=== PATIENT | male | born 1955 | race Caucasian/White ===

== ENCOUNTER 2016-06-17 14:50 | Emergency (ER) | payer OTHER ==
[~2016-06-17] VITALS: Ht 172.7 cm; Wt 91.5 kg
[~2016-06-17 14:50] MED LIST: ASPI-13 PO; ASPI81TA2 PO; ATENOLOL (*) 2525 MG PO; ATOR80TA77 PO; BUPR100T15 PO; CA C1TAB28 PO; HYDR-656 PO; NIT4 SL; OMEP-113 PO; PLAVIX (*) 75 M75 MG PO; PRAV20TA2; TUMS PO
[2016-06-17 15:10] VITALS: BP 132/74; PULSE 71; RESP 15; O2SAT 98
[2016-06-17 19:25] LABS: Mean Corpuscular Hemoglobin 30.1 pg (27.0-35.0); Mean Corpuscular Volume 87.8 fL (81-100)
[2016-06-17 19:53] LABS: TROPONIN T < 0.010 ug/L (0.0-0.011)
--- NOTE | 2016-06-17 20:19 | ED.REPORT ---
HPI-General Illness Date of Service Jun 17, 2016 ED Provider: Shankar Neal DO History of Present Illness: Mr. Elmer Campos is a pleasant 61 year old gentleman with a past medical history significant for CABG x3 in 2004, Stent placement 2012, currently taking plavix, atorvastatin, atenolol presents to the [facility] emergency department with 3 week history of left sided lower and upper jaw pain. The pain is anywhere between 0-3/10, throby and achy, that doesn't radiate. He stated that a "cold pop" today set off the pain to an 8/10 shooting pain. He visited his dentist last 06/11/16. He stated "the dentist got an Xray and it didn't show anything." His staffing branch manager, Dr. Fuller, was not at the office yesterday and they told him to visit the ED. He denies Fever, chills, nausea, vomiting, headache, dizziness, vision change, change in hearing, chest pain, shortness of breath, abdominal pain, constipation , diarrhea, dysuria. Nursing Notes Stated Complaint: LEFT LOWER AND UPPPER JAW PAIN Chief Complaint: General Complaint Nursing Notes Reviewed: Yes Allergies: Coded Allergies: famotidine (Verified Allergy, Intermediate, RASH, 06/17/16) Sulfa (Sulfonamide Antibiotics) (Verified Allergy, Unknown, 06/17/16) Scheduled Amoxicillin (Amoxicillin) 875 Mg Tablet 875 MG PO BID Aspirin-Expunged Drug, Do Not Renew! (Aspirin-Expunged Drug, Do Not Renew!) 81 Mg Tablet 324 MG PO DAILY Aspirin/Calcium Carbonate/Mag (Aspirin Buffered) 325 Mg Tablet 325 MG PO DAILY Atenolol-Expunged Drug, Do Not Renew! (Atenolol-Expunged Drug, Do Not Renew!) 25 Mg Tab 25 MG PO DAILY Atorvastatin Calcium (Atorvastatin Calcium) 80 Mg Tablet 80 MG PO DAILY Bupropion (Bupropion) 100 Mg Tablet 100 MG PO BID Ca Cmb No.1/Vit D3/B-6/FA/B12 (Vitamin D3 1,000 Unit Tablet) 1 Each Tablet 2 EACH PO DAILY Calcium Carbonate-Expunged Drug, Do Not Renew (Tums Chewable-Expunged Drug, Do Not Renew!) 500 Mg Tablet 750 MG PO DAILY Clopidogrel-Expunged Drug, Do Not Renew! (Plavix-Expunged Drug, Do Not Renew!) 75 Mg Tablet 75 MG PO DAILY Nitroglycerin-Expunged Drug, Do Not Renew! (Nitroglycerin SL-Expunged Drug, Do Not Renew!) 0.4 Mg Subl 0.4 MG SL Q5MIN Omeprazole Magnesium (Omeprazole) 20 Mg Capsule.dr 20 MG PO DAILY Pravastatin-Expunged Drug, Do Not Renew! (Pravastatin-Expunged Drug, Do Not Renew!) 20 Mg Tablet 40 MG daily in the evening Scheduled PRN Hydrocodone-Acetaminophen 5-325 mg (Hydrocodone-Acetaminophen 5-325 mg) 1 Each Tablet 1 TABLET PO Q4H PRN PRN For Pain hydrOXYzine Hcl (HydrOXYzine Hcl) 25 Mg Tablet 25-50 MG PO HS PRN PRN For Insomnia General Time Seen by MD: 18:30 Chief Complaint Other Past Medical History Past Medical History CABG x3 in 2004. Cardiac Cath with stent placement 2012. Hypertension. Past Surgical History Reports: CABG Review of Systems A comprehensive review of systems was conducted with the patient and found to be negative except as above in the History of Present Illness. Complete sys rev & neg: except as marked. Physical Exam General: Elderly gentleman sitting in his chair in no acute distress, well-developed, well-nourished, appropriately interactive. HEENT: Normocephalic, atraumatic. External ears without defect. Pupils equal, round, and reactive to light and accommodation. Anicteric sclerae, moist conjunctivae, and no lid lag. Oropharynx free of erythema and cobble stoning with moist mucosa. Pain is reproducible on the 2nd premolar to the 3rd molar on bottom and top of left side. Neck: Supple with full range of motion. No jugular venous distension. No bruits. No lymphadenopathy or thyromegaly. Cardiovascular: Regular rate and rhythm with no murmurs, rubs, or gallops appreciated. Pulmonary: Clear to auscultation bilaterally with no crackles, wheezes, or rhonchi. Normal respiratory effort with no use of accessory muscles. Abdomen: Bowel tones present. Soft, nontender, nondistended. No hepatosplenomegaly or masses appreciated. Extremities: No clubbing, cyanosis, edema, or lymphadenopathy appreciated. Skin: Normal temperature, turgor, and texture; no rash, ulcers, or subcutaneous nodules appreciated. Neurological: Cranial nerves grossly intact. Normal muscle strength, tone, and bulk. Reflexes, coordination, and sensory function within normal limits. No known gait impairment. Psychiatric: Normal mood and affect. Alert and oriented to person, place, and time. Vital Signs Vital Signs Date Time Temp Pulse Resp B/P Pulse Ox O2 Delivery O2 Flow Rate FiO2 06/17/16 15:10 36.3 71 15 132/74 98 Room Air Interpretation & Diagnostics Interpretation & Diagnostics: Pain is reproducible on the 2nd premolar to the 3rd molar on bottom and top of left side. EKG - Normal sinus rhythm, normal axis, no ST elevations/depressions. Lab Results Interpretation Result Diagram: 06/17/16 1908 06/17/16 1908 Test 06/17/16 19:08 White Blood Count 6.7th/mm3 (3.8-10.1) Red Blood Count 4.98mil/mm3 (4.40-5.80) Hemoglobin 15.0g/dL (13.8-17.2) Hematocrit 43.7% (41.0-50.0) Mean Corpuscular Volume 87.8fL (81-100) Mean Corpuscular Hemoglobin 30.1pg (27.0-35.0) Mean Corpuscular Hemoglobin Concent 34.3% (32.0-37.0) Red Cell Distribution Width 12.7% (12.3-15.4) Platelet Count 230bil/L (150-400) Sodium Level 137mEq/L (134-144) Potassium Level 4.2mEq/L (3.5-5.2) Chloride Level 99mEq/L (97-108) Carbon Dioxide Level 24mmol/L (18-29) Blood Urea Nitrogen 13mg/dL (8-27) Creatinine 0.83mg/dL (0.76-1.27) Estimat Glomerular Filtration Rate 99mL/min (>59) Glucose Level 97mg/dL (60-99) Calcium Level 9.2mg/dL (8.5-10.1) Troponin T < 0.010ug/L (0.0-0.011) Re-Eval/Medical Decision Med Decision/Clinical Course 1. Reproducible jaw pain with palpation and cold. - Troponins negative. - EKG normal. - Home with Amoxicillin for 5 days, [place] 5/325 #20, follow up with PCP. Discharge & Departure Shift Change Sign-Out Discussed Complaint(s): Yes Laboratory Evaluation: Lab evaluation discussed Primary Impression: Pain in lower jaw Additional Impression: Pain in upper jaw Disposition: Home Additional Instructions: Your jaw pain is reproducible with palpation and cold. We did an EKG and ethan blood for labs. Your EKG and your lab work was normal, including your troponin level (which measures heart damage) was completely normal. We will send you home with Amoxicillin for 5 days for possible infection. We will send you home with pain medication as well. [place] 5mg/325mg #20 . - While taking this pain medication DO NOT drive, Drink Alcohol, or Take extra Acetaminophen (Tylenol) Follow up with you primary care physician Dr. Jovana Mejia in 1-2 weeks for a follow up visit. Referrals: Jovana Mejia MD (PCP) Attending Statement I personally take a history performed an exam. This gentleman has an exquisitely tender left mandibular premolar. His EKG and troponin are normal. This is at least a 3 day troponin he has been hurting every day for several days. We will place him on antibiotic and pain medication. I have no suspicion at this referred pain. When I percussed his jaw at almost knocked him to his knees. I agree with the resident's note as written above copies to: Jovana Mejia MD, COREY P DO Jun 17, 2016 18:52 Shankar Neal DO Jun 18, 2016 01:36
[2016-06-17] MEDS ORDERED: AMOX875T2 PO (20:20)
[2016-06-17] MEDS ORDERED: HYDR-4003 PO (20:20)
[2016-10-15] MEDS ORDERED: ERGO2000 PO (13:50)
== END 2016-06-17 20:27 | disposition home or self-care (01) ==
LOC: SED 14:50
DX: R68.84 Jaw pain (principal); X58.XXXA Exposure to other specified factors, initial encounter; Y92.9 Unspecified place or not applicable; Y93.89 Activity, other specified; Y99.8 Other external cause status; I10 Essential (primary) hypertension; Z95.1 Presence of aortocoronary bypass graft; Z95.818 Presence of other cardiac implants and grafts; Z79.02 Long term (current) use of antithrombotics/antiplatelets; Z79.82 Long term (current) use of aspirin; Z88.8 Allergy status to other drugs, medicaments and biological substances; Z88.2 Allergy status to sulfonamides

== ENCOUNTER 2016-07-27 17:36 | Emergency (ER) | payer OTHER ==
[~2016-07-27] VITALS: Ht 172.7 cm; Wt 91.8 kg
[~2016-07-27 17:36] MED LIST changes: +AMOX875T2 PO; +HYDR-4003 PO
[2016-07-27 17:55] VITALS: BP 142/76; PULSE 49; RESP 16; O2SAT 97
--- NOTE | 2016-07-27 19:40 | ED.REPORT ---
HPI-Dental/Mouth Prob Date of Service Jul 27, 2016 ED Provider: Mehran De Jesus MD Pt is a 61 y/o male presenting to the ED c/o dental pain onset today. The pt had a lower denture put in 5 days ago and during placement he noticed they cut his gum. His gum has been sensitive, painful, with mild swelling since that day. He denies dysphagia, trouble breathing, fever. He has an appointment for a recheck in 4 days. Nursing Notes Stated Complaint: POSSIBLE GUM INFECTION Chief Complaint: Dental Nursing Notes Reviewed: Yes Allergies: Coded Allergies: famotidine (Verified Allergy, Intermediate, RASH, 07/27/16) Sulfa (Sulfonamide Antibiotics) (Verified Allergy, Unknown, 07/27/16) Scheduled Amoxicillin (Amoxicillin) 875 Mg Tablet 875 MG PO BID Aspirin-Expunged Drug, Do Not Renew! (Aspirin-Expunged Drug, Do Not Renew!) 81 Mg Tablet 324 MG PO DAILY Aspirin/Calcium Carbonate/Mag (Aspirin Buffered) 325 Mg Tablet 325 MG PO DAILY Atenolol-Expunged Drug, Do Not Renew! (Atenolol-Expunged Drug, Do Not Renew!) 25 Mg Tab 25 MG PO DAILY Atorvastatin Calcium (Atorvastatin Calcium) 80 Mg Tablet 80 MG PO DAILY Bupropion (Bupropion) 100 Mg Tablet 100 MG PO BID Ca Cmb No.1/Vit D3/B-6/FA/B12 (Vitamin D3 1,000 Unit Tablet) 1 Each Tablet 2 EACH PO DAILY Calcium Carbonate-Expunged Drug, Do Not Renew (Tums Chewable-Expunged Drug, Do Not Renew!) 500 Mg Tablet 750 MG PO DAILY Clopidogrel-Expunged Drug, Do Not Renew! (Plavix-Expunged Drug, Do Not Renew!) 75 Mg Tablet 75 MG PO DAILY Nitroglycerin-Expunged Drug, Do Not Renew! (Nitroglycerin SL-Expunged Drug, Do Not Renew!) 0.4 Mg Subl 0.4 MG SL Q5MIN Omeprazole Magnesium (Omeprazole) 20 Mg Capsule.dr 20 MG PO DAILY Penicillin V Potassium (Penicillin V Potassium) 500 Mg Tablet 500 MG PO QID Pravastatin-Expunged Drug, Do Not Renew! (Pravastatin-Expunged Drug, Do Not Renew!) 20 Mg Tablet 40 MG daily in the evening Scheduled PRN Hydrocodone-Acetaminophen 5-325 mg (Hydrocodone-Acetaminophen 5-325 mg) 1 Each Tablet 1 TABLET PO Q4H PRN PRN For Pain hydrOXYzine Hcl (HydrOXYzine Hcl) 25 Mg Tablet 25-50 MG PO HS PRN PRN For Insomnia General Time Seen by MD: 19:39 Chief Complaint Mouth pain Hx Obtained From: Patient Arrived By: Walk-in Onset Occurred: 5 - 8 hours ago Symptom Duration: Since onset Quality: Painful Severity: Current: Mild Severity: Maximum: Mild Similar Sx Previous: No Past Medical History Past Medical History CABG x3 in 2004. Cardiac Cath with stent placement 2012. Hypertension. Past Surgical History Reports: CABG Smoking History Unknown if Ever Smoker Ambulatory Status Independent Review of Systems Constitutional: Denies: Fever Ears / Nose / Throat: Reports: Mouth pain, Denies: Throat swelling Respiratory: Denies: Shortness of breath GI: Denies: Dysphagia Complete sys rev & neg: except as marked. Physical Exam Initial Vital Signs Vital Signs (First) Date Time Temp Pulse Resp B/P Pulse Ox O2 Delivery O2 Flow Rate FiO2 07/27/16 17:55 37.0 49 16 142/76 97 Room Air Initial VS: Reviewed, Vital signs normal Head / Eyes: Atraumatic, Normocephalic, PERRL Respiratory: No respiratory distress Cardiovascular: Intact distal pulses Abdomen / GI: No distention Extremities: Vascular intact, Neuro intact Skin: Warm, Dry, No cyanosis Neurologic: Alert, Oriented, Nonfocal Psychiatric: Mood/affect normal, Behavior normal, Normal thought content ENT: Atraumatic, Airway patent, Mucous membranes moist, Pharynx NL, No facial swelling Normal voice. Over the lingual aspect of right lower jaw there appears to be a healing laceration. The area sensitive to touch, with some mild erythema. Neck: Atraumatic, Supple, No meningismus, Full range of motion, No adenopathy Re-Eval/Medical Decision Re-Evaluation/Progress : Time of Eval: 19:56 Re-Evaluation/Progress Note: Pt rechecked. Informed pt of plan for treatment. Pt understands and agrees with plan for treatment. F/U and RTER warnings given. All questions addressed. Counseled Regarding: Diagnosis, Need for follow-up, When/why to return to ED Discharge & Departure Primary Impression: Jaw pain Disposition: Home Discharge Condition All VS Reviewed: Yes Condition: Stable Additional Instructions: Take penicillin as prescribed. Soft diet for 3 days. Re-check at dental school next week Referrals: Jovana Mejia MD (PCP) Selena Attestation Portions of this note were transcribed by Paul Melara. I, Dr. DeJ esus personally performed the history, physical exam and medical decision-making; I reviewed and confirmed the accuracy of the information in the transcribed note. Signed by Selena Ta, 07/27/16 - 1999 copies to: Jovana Mejia MD, Donald L MD Jul 27, 2016 19:40 PAUL MELARA Jul 27, 2016 19:54
[2016-07-27] MEDS ORDERED: PENI500T PO (19:56)
[2016-07-27 20:18] VITALS: BP 131/74; PULSE 48; RESP 18
[2016-10-15] MEDS ORDERED: ERGO2000 PO (13:50)
== END 2016-07-27 20:19 | disposition home or self-care (01) ==
LOC: SED 17:36
DX: R68.84 Jaw pain (principal); I10 Essential (primary) hypertension; Z95.1 Presence of aortocoronary bypass graft; Z79.82 Long term (current) use of aspirin; Z79.899 Other long term (current) drug therapy; Z88.2 Allergy status to sulfonamides; Z88.8 Allergy status to other drugs, medicaments and biological substances

== ENCOUNTER 2016-10-16 12:00 | Day surgery (SDC) | payer OTHER ==
[~2016-10-16 12:00] MED LIST changes: +0.9% Sodium Chloride 1,000 ML IV SCH; -AMOX875T2 PO; -ASPI-13 PO; -ASPI81TA2 PO; -ATENOLOL (*) 2525 MG PO; -ATOR80TA77 PO; -BUPR100T15 PO; -CA C1TAB28 PO; +ERGO2000 PO; -HYDR-4003 PO; -HYDR-656 PO; -NIT4 SL; -OMEP-113 PO; -PRAV20TA2; +Sodium Chloride LOK Flush 10 mL Syringe IV PRN; +fentaNYL-PF 50 mCg/mL 2 mL Inj IVPUSH PRN
== END 2016-10-16 23:59 | disposition home or self-care (01) ==
LOC: END 12:00
PROVIDERS: ATTEND Internal Medicine Gastroenterology
DX: K22.70 Barrett's esophagus without dysplasia (principal); Z53.09 Procedure and treatment not carried out because of other contraindication

== ENCOUNTER 2016-12-01 08:13 | Day surgery (SDC) | payer OTHER ==
[~2016-12-01] VITALS: Ht 172.7 cm; Wt 91.0 kg
[~2016-12-01 08:13] MED LIST changes: +ATEN25TA PO; +ATOR80TA PO; +MELO-259 PO
[2016-12-01 08:42] VITALS: BP 134/82; PULSE 73; RESP 16; O2SAT 97
[2016-12-01] MEDS ORDERED: CLOP75TA28 PO (08:44)
[2016-12-01 09:23] VITALS: BP 145/81; PULSE 69; RESP 12; O2SAT 95
[2016-12-01 09:32] VITALS: BP 142/74; PULSE 72; RESP 14; O2SAT 95
[2016-12-01 09:38] VITALS: BP 141/90; PULSE 68; RESP 14; O2SAT 98
--- NOTE | 2016-12-01 09:47 | ENDO ---
[address] [address] ENDOSCOPY PROCEDURE PATIENT: MARYANN DALTON : 1955 MR#: [id number] ADMIT: 12/01/2016 JOB ID: [id number] DATE: 12/01/2016 PROCEDURE: Esophagogastroduodenoscopy. 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 Patient's ASA classification is two. Mallampati score is two. MEDICATIONS: 1. Versed 5 mg. 2. Fentanyl 100 mcg. INSTRUMENT USED: [id number] PROCEDURE DETAILS: After informed consent was obtained, the patient was brought to the GI suite, where he was placed on oxygen via nasal cannula and monitored with continuous pulse oximeter, telemetry, and blood pressure monitoring. A time-out was performed and then he was placed in a left lateral decubitus position and medications were administered for sedation. A bite block was placed. Medications were then administered for sedation. The standard EGD scope was then inserted through the bite block and advanced under direct visualization to the second portion of the duodenum without difficulty. FINDINGS: 1. Normal-appearing duodenal bulb, first and second portion. 2. Normal-appearing pylorus antrum and gastric body. 3. Retroflexed views in the gastric body revealed a normal-appearing cardia fundus. 4. Multiple biopsies were obtained in the antrum and body of the stomach secondary to patient's complaint of nausea. 5. The top of the gastric folds measured to be approximately at 38 cm. Arising from the top of the gastric folds extending up to 32 cm there was bright salmon-colored mucosa in a circumferential pattern. From 32 cm extending up to 30 cm there was ulcerated mucosa in a linear fashion. Proximal to 30 cm the mucosa otherwise appeared unremarkable. IMPRESSION: 1. Long segment Boyd's. 2. LA Class A ulcerative esophagitis. RECOMMENDATIONS: 1. Recommend starting PPI daily. 2. Reflux precautions. 3. Follow up in GI clinic in one week. COMPLICATIONS: None. ESTIMATED BLOOD LOSS: Less than 5 mL.
--- NOTE | 2016-12-01 18:24 | ENDO ---
[address] [address] ENDOSCOPY PROCEDURE PATIENT: MARYANN DALTON : 1955 MR#: [id number] ADMIT: 12/01/2016 JOB ID: [id number] DATE: 12/01/2016 PROCEDURE: Esophagogastroduodenoscopy. INDICATION: Patient with a history of Boyd esophagus, who is not on any medications to treat Boyd's. The patient's ASA classification is II. Mallampati score is II. MEDICATIONS: Versed 5 mg, fentanyl 100 mcg. INSTRUMENT USED: [id number]. PROCEDURE DETAILS: After informed consent was obtained, the patient was brought into the GI suite, where he was placed on oxygen via nasal cannula and monitored with continuous pulse oximeter, telemetry, and blood pressure monitoring. A time-out was performed. Then, he was placed in the left lateral decubitus position. A bite block was placed. Medications were then administered for sedation. The standard EGD scope was inserted through the bite block and advanced under direct visualization to the second portion of the duodenum without difficulty. FINDINGS: 1. Normal-appearing duodenal bulb, first and second portion. 2. Normal-appearing pylorus, antrum, and gastric body. 3. Retroflexed views in the gastric body revealed a normal-appearing cardia and fundus. 4. Multiple random biopsies were obtained in the antrum and body of stomach secondary to the patient's complaint of nausea. 5. The top of the gastric folds were approximately 39 cm. From 39 cm extending up to 32 cm, the mucosa was bright pink, suggestive of Boyd's, in a circumferential fashion. Multiple biopsies were obtained starting at 38 cm, and then 36 cm, and then 34 cm, and then 32 cm. From 32 cm, extending up to 30 cm, there were two linear areas of ulceration, suggestive of ulcerative esophagitis. IMPRESSION: 1. C6, M0 suspected Boyd's. 2. Lane Class A ulcerative esophagitis. RECOMMENDATIONS: 1. Await biopsy results. 2. Follow up in GI clinic. 3. Reflux precautions. COMPLICATIONS: None. ESTIMATED BLOOD LOSS: Less than 5 mL.
--- NOTE | 2016-12-02 10:43 | PATH ---
SURGICAL PATHOLOGY Attending Physician:Shereen Zimmer CASE STATUS: Signed Out PATIENT NAME: MARYANN DALTON PID: [id number] : 1955 DATE COLLECTED:12/01/2016 16:27 SPECIMEN: 1: Gastric, Biopsy 2: Esophagus, Biopsy 3: Esophagus, Biopsy 4: Esophagus, Biopsy 5: Esophagus, Biopsy CLINICAL HISTORY: HISTORY OF AGUILAR'S 1. GASTRIC BIOPSY 2. DISTAL ESOPHAGUS BIOPSY @38CM 3. DISTAL ESOPHAGUS BIOPSY @36 CM 4. DISTAL ESOPHAGUS BIOPSY @34 CM 5. DISTAL ESOPHAGUS BIOPSY @32 CM FINAL DIAGNOSIS: 1.GASTRIC BIOPSY: FRAGMENT OF GASTRIC FUNDIC-TYPE MUCOSA NEGATIVE FOR SIGNIFICANT INFLAMMATION. Negative for evidence of Helicobacter on H&E stain. Negative for intestinal metaplasia. Negative for dysplasia and malignancy. 2.DISTAL ESOPHAGUS BIOPSY AT 38 CM: FRAGMENTS OF GASTRIC CARDIA-TYPE AND OXYNTIC-TYPE MUCOSA WITH NO SQUAMOUS EPITHELIUM PRESENT. Negative for specialized metaplasia of Aguilar' s-type esophagus. Negative for dysplasia and malignancy. 3.DISTAL ESOPHAGUS BIOPSY AT 36 CM: GASTRIC CARDIA-TYPE MUCOSA POSITIVE FOR SPECIALIZED METAPLASIA OF AGUILAR' S-TYPE ESOPHAGUS. No squamous mucosa present. Negative for dysplasia and malignancy. 4.DISTAL ESOPHAGUS BIOPSY AT 34 CM: FRAGMENT OF GASTRIC CARDIA-TYPE MUCOSA NEGATIVE FOR SPECIALIZED METAPLASIA OF AGUILAR' S-TYPE ESOPHAGUS. No squamous mucosa present. Negative for dysplasia and malignancy. 5.DISTAL ESOPHAGUS BIOPSY AT 32 CM: FRAGMENTS OF SQUAMOUS MUCOSA WITH NO GASTRIC-TYPE MUCOSA PRESENT. Negative for intraepithelial eosinophils. Negative for dysplasia and malignancy. ICD10 K22.70 GROSS DESCRIPTION: The specimen is received in five formalin filled containers labeled with the patient's name. 1). The specimen is sublabeled "gastric" and consists of 2 portions of tissue which aggregate to 0.3 x 0.2 x 0.2 CM. The specimen is entirely submitted in cassette 1A. 2). The specimen is sublabeled "distal esophagus at 38 CM" and consists of 2 portions of tissue which aggregate to 0.4 x 0.2 x 0.2 CM. The specimen is entirely submitted in cassette 2A. 3). The specimen is sublabeled "distal esophagus at 36 CM " and consists of a 0.2 x 0.2 x 0.2 CM portion of tissue which is entirely submitted in cassette 3A. 4). The specimen is sublabeled "distal esophagus at 34 CM" and consists of a 0.2 x 0.2 x 0.2 CM portion of tissue which is entirely submitted in cassette 4A. 5). The specimen is sublabeled "distal esophagus at 32 CM" and consists of a 0.3 x 0.2 x 0.2 CM portion of tissue which is entirely submitted in cassette 5A. 12/01/2016 DAC MICRO DESCRIPTION: See diagnosis. ICD-9 CODES: CPT CODES: 1: 56846 2: 05655 3: 11389 4: 55905 5: 45335 Electronically Signed Out Mehran Danielson MD [facility] [address], [place] [address] Technical component performed at [facility], [facility] [address], [place], [address]
== END 2016-12-01 23:59 | disposition home or self-care (01) ==
LOC: END 08:13
PROVIDERS: ATTEND Internal Medicine Gastroenterology
DX: K22.70 Barrett's esophagus without dysplasia (principal); I10 Essential (primary) hypertension; I25.10 Atherosclerotic heart disease of native coronary artery without angina pectoris; E78.5 Hyperlipidemia, unspecified; K21.9 Gastro-esophageal reflux disease without esophagitis; I25.2 Old myocardial infarction; F17.210 Nicotine dependence, cigarettes, uncomplicated; Z85.828 Personal history of other malignant neoplasm of skin; Z95.1 Presence of aortocoronary bypass graft; Z79.82 Long term (current) use of aspirin
CPT/HCPCS: 43239; 88305; 99152; J2250; J3010; J7030

== ENCOUNTER 2017-02-23 13:55 | Observation (INO) | payer OTHER ==
[2017-02-23] VITALS (8 sets, daily range): BP systolic 117–197; BP diastolic 55–86; PULSE 58–75; RESP 16–20; O2SAT 97–100
[~2017-02-23] VITALS: Ht 172.7 cm; Wt 88.0 kg
[~2017-02-23 13:55] MED LIST changes: -0.9% Sodium Chloride 1,000 ML IV SCH; +CLOP75TA28 PO; -PLAVIX (*) 75 M75 MG PO; -Sodium Chloride LOK Flush 10 mL Syringe IV PRN; -TUMS PO; -fentaNYL-PF 50 mCg/mL 2 mL Inj IVPUSH PRN
[2017-02-23 14:55] LABS: BASOPHILS % (AUTO) 0.4 % (0-3); EOSINOPHILS % (AUTO) 0.7 % (0-5); MONOCYTES % (AUTO) 7.3 % (4-12); Mean Corpuscular Hemoglobin 29.8 pg (27.0-35.0); Mean Corpuscular Volume 87.1 fL (81-100); NEUTROPHILS % (AUTO) 66.4 % (40-74); Platelet Count 223 bil/L (150-400)
[2017-02-23 15:11] LABS: INR 0.94 ratio
--- NOTE | 2017-02-23 15:11 | DRSVH ---
PROCEDURE: X-RAY CHEST ONE VIEW, PORTABLE ([id number]) INDICATIONS: Chest pain. TECHNIQUE: One view of the chest was acquired. COMPARISON: [facility], , CHEST 1VW (PORTABLE), 01/16/2013, 17:39. FINDINGS: Surgical changes and devices: None. Lungs and pleura: No pleural effusions or pneumothorax. Lungs are clear. Mediastinum: Mediastinal contours appear normal. Heart size is normal. Bones and chest wall: No suspicious bony lesions. Overlying soft tissues appear unremarkable. IMPRESSION: No acute cardiopulmonary disease. Dictated by: Jeancarlos Hubbard M.D. on 02/23/2017 at 15:09 Approved by: Jeancarlos Hubbard M.D. on 02/23/2017 at 15:10
--- NOTE | 2017-02-23 15:14 | ED.REPORT ---
HPI-Chest Pain 40 and Over Date of Service Feb 23, 2017 ED Provider: Candelario Haskins MD Pt is a 62 y/o male with a history of CABG x3, hypertension, and a cardiac cath with stent placement on Plavix who presents to the ED c/o intermittent, searing L-sided chest pain onset four days ago. He states that his episodes last 10-15 minutes on average, with the longest at 20 minutes. Pt is unaware if he his pain radiates to his left arm due to pain from a torn rotator cuff in his left arm. At the worst, he rated the severity of his pain at 2/10, but is pain free now. Additional symptoms include fatigue. He denies SOB, nausea, diaphoresis, or his pain being exacerbated by anything. He reports that he has had similar symptoms in the past with prior to stent placement four years ago. Nursing Notes Stated Complaint: HEART PAINS Chief Complaint: Chest Pain Nursing Notes Reviewed: Yes ([employer], Aster[employer] not reconciled) Allergies: Coded Allergies: Sulfa (Sulfonamide Antibiotics) (Verified Allergy, Severe, RASH, 02/23/17) famotidine (Verified Allergy, Unknown, UNCLEAR IF ALLERGY TO SULFA OR PEPCID - TOOK AT SAME TIME, 02/23/17) Scheduled Atenolol (Atenolol) 25 Mg Tablet 25 MG PO QPM Atorvastatin (Lipitor) 80 Mg Tablet 80 MG PO HS Calcium Carbonate (Calcium Carbonate) 600 Mg Tablet 600 MG PO BIDWM Cholecalciferol (Vitamin D3) (Vitamin D3) 50,000 Unit Capsule 50,000 UNIT PO TWICE MONTHLY TAKES ON THE AND 15TH OF THE MONTH Clopidogrel (Clopidogrel) 75 Mg Tablet 75 MG PO QPM Hydrocortisone Sod Succ/Pf (Solu-Cortef 100 mg Vial) 100 Mg/2 Ml Vial 100 MG IJ ONCE To joint for shoulder pain Omeprazole (Omeprazole) 20 Mg Tablet.dr 20 MG PO BIDWM General Time Seen by MD: 14:43 Chief Complaint Chest pain Hx Obtained From: Patient Arrived By: Ambulance Sudden in Onset?: No Onset Occurred: 4 days ago Symptom Duration: Intermittent Location: : Chest left Quality: Painful Severity: Current: Pain level 0 out of 10 Severity: Maximum: Pain level 2 out of 10 Recent Healthcare: Recent doctor visit Similar Sx Previous: Yes Past Medical History Past Medical History CABG x3 in 2004. Cardiac Cath with stent placement 2012. Hypertension. Past Surgical History Reports: CABG, Tonsillectomy Smoking History Unknown if Ever Smoker Ambulatory Status Independent Review of Systems Constitutional: Reports: Fatigue Respiratory: Denies: Shortness of breath Cardiovascular: Reports: Chest pain GI: Denies: Nausea Skin: Denies Diaphoresis Complete sys rev & neg: except as marked. Physical Exam Initial Vital Signs Vital Signs (First) Date Time Temp Pulse Resp B/P Pulse Ox O2 Delivery O2 Flow Rate FiO2 02/23/17 14:06 37.1 60 18 161/86 98 Room Air Initial VS: Reviewed, Vital signs normal Head / Eyes: Atraumatic, Normocephalic Neck: Supple, Full range of motion Extremities: Vascular intact, Neuro intact, No swelling, No tenderness Skin: Warm, Dry, No cyanosis Neurologic: Alert, Oriented, Nonfocal Psychiatric: Mood/affect normal, Behavior normal, Normal thought content General/Constitutional: Awake, Alert Respiratory / Chest: Atraumatic, Breath sounds NL, Breath sounds = bilat, No respiratory distress Cardiovascular: Heart rate NL, Regular rhythm, Heart sounds NL Abdomen: Soft, Non-tender Interpretation & Diagnostics Lab Results Interpretation Result Diagram: 02/23/17 1145 02/23/17 1145 Test 02/23/17 11:45 White Blood Count 7.5th/mm3 (3.8-10.1) Red Blood Count 5.04mil/mm3 (4.40-5.80) Hemoglobin 15.0g/dL (13.8-17.2) Hematocrit 43.9% (41.0-50.0) Mean Corpuscular Volume 87.1fL (81-100) Mean Corpuscular Hemoglobin 29.8pg (27.0-35.0) Mean Corpuscular Hemoglobin Concent 34.2% (32.0-37.0) Red Cell Distribution Width 13.0% (12.3-15.4) Platelet Count 223bil/L (150-400) Neutrophils (%) (Auto) 66.4% (40-74) Lymphocytes (%) (Auto) 24.7% (14-46) Monocytes (%) (Auto) 7.3% (4-12) Eosinophils (%) (Auto) 0.7% (0-5) Basophils (%) (Auto) 0.4% (0-3) Prothrombin Time 10.0sec (8.1-12.5) Prothromb Time International Ratio 0.94ratio Sodium Level 138mEq/L (134-144) Potassium Level 4.1mEq/L (3.5-5.2) Chloride Level 99mEq/L (97-108) Carbon Dioxide Level 21mmol/L (18-29) Blood Urea Nitrogen 18mg/dL (8-27) Creatinine 0.82mg/dL (0.76-1.27) Estimat Glomerular Filtration Rate 101mL/min (>59) Glucose Level 155mg/dL (60-99) Calcium Level 9.2mg/dL (8.5-10.1) Magnesium Level 2.0mg/dL (1.6-2.6) Total Bilirubin 0.5mg/dL (0.0-1.2) Aspartate Amino Transf (AST/SGOT) 21U/L (0-50) Alanine Aminotransferase (ALT/SGPT) 30U/L (0-44) Alkaline Phosphatase 107U/L (25-160) Pro-B-Type Natriuretic Peptide 35.93pg/mL (0-210) Total Protein 7.2g/dL (6.4-8.4) Albumin 4.4g/dL (3.4-5.0) Hold Barlow Top Tube Received (Received) Lab Results Interpretation: CBC nl; CMP normal Troponin #1 negative ECG Interpretation ECG Interpretation: EKG demonstrates borderline ST segment elevation in V1 and V2, nonspecific, without clear reciprocal changes, slightly more pronounced than previous EKG dated 06/17/2016 Time: 15:14 Interpreted by: ED physician ECG Interpretation: EKG #2 time 2:47 PM indicates a sinus bradycardia rate of 59, slight wrist and but nonspecific ST segment elevation seen previously in V1 and V2 appears to have resolved, this is a normal EKG without ischemic changes, patient was reportedly pain-free at the time of this cardiogram Time: 15:14 Interpreted by: ED physician X-Ray Chest Interpretation Chest Xray Interpretation: IMPRESSION: No acute cardiopulmonary disease. Dictated by: Jeancarlos Hubbard M.D. on 02/23/2017 at 15:09 Approved by: Jeancarlos Hubbard M.D. on 02/23/2017 at 15:10 View: Portable, 1 view Interpretation / Wet Read by: Interpret - Radiologist Re-Eval/Medical Decision Med Decision/Clinical Course This is a pleasant 62-year-old male with a history of coronary disease with a CABG as well as percutaneous intervention about 4 years ago, who presents with left-sided chest discomfort that has been intermittent lasting a few minutes at a time, but not clearly exertional this occurred over the past few days-and the patient reports is identical to what he had with symptoms prior to his last stent. He denies diaphoresis, shortness breath, nausea or vomiting, they does note that he has some left arm pain from an injury, so makes it hard for him to tell if there is some radiation. Symptoms are not clearly exertional, but he reiterates that they are identical in character to what he had prior to his last stent. He has had no diaphoresis or other high risk features. The symptoms are short in duration again, lasting only a few minutes. He did have an episode in the department which was captured EKG, with borderline EKG abnormalities in V1 and V2 that are nonspecific, but no reciprocal changes. His symptoms then resolved second EKG was normal without ischemic changes. The patient received aspirin, he is on Plavix, Nitropaste was applied, and given the story the risk factors concern for underlying unstable angina, the patient is being admitted for serial markers and evaluation. The case has been discussed with the hospitalist. Source of Hx: Old records Time of Eval: 15:34 Re-Evaluation/Progress Note: Pt rechecked. Discussed plan for admission. Pt understands and agrees with plan. All questions addressed. Consultation : Referral / Consult Name: Brittnee Coker MD Consulted With: Hospitalist Call Returned at: 16:35 Sleeve Sewer: Will see patient, Agrees with plan, Accepts admit Note: Discussed pt's case with hospitalist, Dr. Coker. She accepts admission. Differential Diagnosis: Positive: Chest pain, acute, Negative: Aortic dissection, Dysrhythmia, Esophageal rupture, Gun shot wound chest, Peptic ulcer disease, Pneumonia, Pneumothorax, Pulmonary edema, Pulmonary embolism Counseled Regarding: Diagnosis, Lab results, Need for admission Discharge & Departure Primary Impression: Chest pain Chest pain type: unspecified Qualified Code: R07.9 - Chest pain, unspecified Disposition: ADMITTED TO HOSPITAL Discharge Condition All VS Reviewed: Yes Condition: Stable Referrals: Jovana Mejia MD (PCP) Scribe Attestation Portions of this note were transcribed by Breanna Ruiz. I, Dr. Haskins, personally performed the history, physical exam and medical decision-making; I reviewed and confirmed the accuracy of the information in the transcribed note. Signed by: Selena De Jesus, 02/23/17. copies to: Jovana Mejia MD, Matthew F MD Feb 23, 2017 15:14 Breanna Ruiz Feb 23, 2017 15:18 Candelario Haskins MD Feb 23, 2017 15:14 Breanna Ruiz Feb 23, 2017 15:18
[2017-02-23] MEDS ORDERED: Nitroglycerin 2% 1 Gm Ointment TOPICAL SCH (15:15)
[2017-02-23 15:34] LABS: TROPONIN T < 0.010 ug/L (0.0-0.011)
[2017-02-23] MEDS ORDERED: CALC600T87 PO (15:39)
[2017-02-23] MEDS ORDERED: OMEP20TA86 PO (15:39)
[2017-02-23] MEDS ORDERED: CHOL500050 PO (16:12)
[2017-02-23] MEDS ORDERED: HYDR100V5 IJ (16:45)
[2017-02-23] MEDS ORDERED: Alum-Mag Hydrox-Simeth 30 mL Suspension PO PRN ×2 (16:45→16:50)
[2017-02-23] MEDS ORDERED: Ondansetron 2 mg/mL 2 mL Inj IVPUSH PRN ×2 (16:45→16:50)
[2017-02-23] MEDS ORDERED: Atropine 1 mg/10 mL (Code) Syringe IVPUSH PRN (16:50)
[2017-02-23] MEDS ORDERED: Polyethylene Glycol (PEG) 17 Gm Powder PO PRN (16:50)
[2017-02-23] MEDS ORDERED: Senna-Docusate 8.6-50 mg Tablet PO PRN (16:50)
--- NOTE | 2017-02-23 17:05 | PCM.HPMED ---
Subjective Date of Service Feb 23, 2017 Primary Provider: Admitting Physician: Luis Simms MD Primary Care Physician: Jovana Mejia MD Attending Physician: Luis Simms MD Admit Status: From the Emergency Department, 23-Hour Observation, Remote Telemetry Chief Complaint: Chest pain History of Present Illness: 62-year-old male with a history of CABG 3 done in 2004 at [facility] and a stent done in October 2012. Patient had a bare metal stent placed to the saphenous venous graft to the diagonal. He notes he had been doing fine up until he noted some burning left-sided anterior. He notes would last from 5-10 minutes. Did not seem to be related to exertion. He notes that he had similar symptoms when he had his [place]. He had no nausea vomiting diaphoresis or lightheadedness with it. He has had no change in bowel movements. He notes that it does not seem to get worse with movement. He did have a left sided supraspinatus tear and of October. First troponin is negative. Review of Systems: All other review of systems are reviewed and are negative except for as in history of present illness. Allergies Coded Allergies: Sulfa (Sulfonamide Antibiotics) (Verified Allergy, Severe, RASH, 02/23/17) famotidine (Verified Allergy, Unknown, UNCLEAR IF ALLERGY TO SULFA OR PEPCID - TOOK AT SAME TIME, 02/23/17) Home Medications Atenolol (Atenolol) 25 Mg Tablet 25 MG PO QPM Atorvastatin (Lipitor) 80 Mg Tablet 80 MG PO HS Calcium Carbonate (Calcium Carbonate) 600 Mg Tablet 600 MG PO BIDWM Cholecalciferol (Vitamin D3) (Vitamin D3) 50,000 Unit Capsule 50,000 UNIT PO TWICE MONTHLY TAKES ON THE 1ST AND 15TH OF THE MONTH Clopidogrel (Clopidogrel) 75 Mg Tablet 75 MG PO QPM Omeprazole (Omeprazole) 20 Mg Tablet.dr 20 MG PO BIDWM PMH CABG x3 in 2004. Cardiac Cath with stent placement 2012. Hypertension. -History of Boyd's esophagus with recent EGD done November 2016 and currently started omeprazole Past Surgical History Reports: CABG Status post tonsillectomy Social History Hx Alcohol Use: Yes (3 TIMES A WEEK FOUR TO SIX DRINKS) Hx Substance Use: No Hx Tobacco Use: Yes (CHEWS TODAY - THREE CANS A WEEK.) Smoking Status: Unknown if Ever Smoker Exam Vital Signs Vital Sign - Last Date Time Temp Pulse Resp B/P Pulse Ox O2 Delivery O2 Flow Rate FiO2 02/23/17 15:57 59 16 117/55 97 Room Air 02/23/17 14:06 37.1 Exam Constitutional: 62-year-old male who is in no acute distress Head: Normocephalic atraumatic Eyes: PERRLA DC EOMI Mouth: No lesions Neck: Carotids 2+ over 4 the bruits Chest: Clear to auscultation Cor: Regular rate and rhythm S1-S2 without murmur Abdomen: Soft nontender bowel sounds present Extremities: No pedal edema Skin: No rashes Psych: Mood and affect are appropriate Neuro: Alert and oriented 3, motor strength is intact bilaterally Lab and Diagnostics Labs Laboratory Tests 72 Hours Test 02/23/17 11:45 White Blood Count 7.5th/mm3 (3.8-10.1) Red Blood Count 5.04mil/mm3 (4.40-5.80) Hemoglobin 15.0g/dL (13.8-17.2) Hematocrit 43.9% (41.0-50.0) Mean Corpuscular Volume 87.1fL (81-100) Mean Corpuscular Hemoglobin 29.8pg (27.0-35.0) Mean Corpuscular Hemoglobin Concent 34.2% (32.0-37.0) Red Cell Distribution Width 13.0% (12.3-15.4) Platelet Count 223bil/L (150-400) Neutrophils (%) (Auto) 66.4% (40-74) Lymphocytes (%) (Auto) 24.7% (14-46) Monocytes (%) (Auto) 7.3% (4-12) Eosinophils (%) (Auto) 0.7% (0-5) Basophils (%) (Auto) 0.4% (0-3) Prothrombin Time 10.0sec (8.1-12.5) Prothromb Time International Ratio 0.94ratio Sodium Level 138mEq/L (134-144) Potassium Level 4.1mEq/L (3.5-5.2) Chloride Level 99mEq/L (97-108) Carbon Dioxide Level 21mmol/L (18-29) Blood Urea Nitrogen 18mg/dL (8-27) Creatinine 0.82mg/dL (0.76-1.27) Estimat Glomerular Filtration Rate 101mL/min (>59) Glucose Level 155mg/dL (60-99) Calcium Level 9.2mg/dL (8.5-10.1) Magnesium Level 2.0mg/dL (1.6-2.6) Total Bilirubin 0.5mg/dL (0.0-1.2) Aspartate Amino Transf (AST/SGOT) 21U/L (0-50) Alanine Aminotransferase (ALT/SGPT) 30U/L (0-44) Alkaline Phosphatase 107U/L (25-160) Troponin T < 0.010ug/L (0.0-0.011) Pro-B-Type Natriuretic Peptide 35.93pg/mL (0-210) Total Protein 7.2g/dL (6.4-8.4) Albumin 4.4g/dL (3.4-5.0) Hold Barlow Top Tube Received (Received) Result Diagram: 02/23/17 1145 02/23/17 1145 X-Rays, CTs and MRIs PROCEDURE: X-RAY CHEST ONE VIEW, PORTABLE ([id number]) INDICATIONS: Chest pain. TECHNIQUE: One view of the chest was acquired. COMPARISON: [facility], , CHEST 1VW (PORTABLE), 01/16/2013, 17:39. FINDINGS: Surgical changes and devices: None. Lungs and pleura: No pleural effusions or pneumothorax. Lungs are clear. Mediastinum: Mediastinal contours appear normal. Heart size is normal. Bones and chest wall: No suspicious bony lesions. Overlying soft tissues appear unremarkable. IMPRESSION: No acute cardiopulmonary disease. Dictated by: Jeancarlos Hubbard M.D. on 02/23/2017 at 15:09 Approved by: Jeancarlos Hubbard M.D. on 02/23/2017 at 15:10 12-lead ECG sinus at rate of 58 with YAX=737,minimal ST upsloping in V1,V2 Additional Diagnostics: 12/01/2016 PROCEDURE: Esophagogastroduodenoscopy. INDICATION: Patient with a history of Boyd esophagus, who is not on any medications to treat Boyd's. The patient's ASA classification is II. Mallampati score is II. MEDICATIONS: Versed 5 mg, fentanyl 100 mcg. INSTRUMENT USED: [id number]. PROCEDURE DETAILS: After informed consent was obtained, the patient was brought into the GI suite, where he was placed on oxygen via nasal cannula and monitored with continuous pulse oximeter, telemetry, and blood pressure monitoring. A time-out was performed. Then, he was placed in the left lateral decubitus position. A bite block was placed. Medications were then administered for sedation. The standard EGD scope was inserted through the bite block and advanced under direct visualization to the second portion of the duodenum without difficulty. FINDINGS: 1. Normal-appearing duodenal bulb, first and second portion. 2. Normal-appearing pylorus, antrum, and gastric body. 3. Retroflexed views in the gastric body revealed a normal-appearing cardia and fundus. 4. Multiple random biopsies were obtained in the antrum and body of stomach secondary to the patient's complaint of nausea. 5. The top of the gastric folds were approximately 39 cm. From 39 cm extending up to 32 cm, the mucosa was bright pink, suggestive of Boyd's, in a circumferential fashion. Multiple biopsies were obtained starting at 38 cm, and then 36 cm, and then 34 cm, and then 32 cm. From 32 cm, extending up to 30 cm, there were two linear areas of ulceration, suggestive of ulcerative esophagitis. IMPRESSION: 1. C6, M0 suspected Boyd's. 2. Nash Class A ulcerative esophagitis. RECOMMENDATIONS: 1. Await biopsy results. 2. Follow up in GI clinic. 3. Reflux precautions. COMPLICATIONS: None. ESTIMATED BLOOD LOSS: Less than 5 mL. Assessment & Plan #Chest pain, acute, present on admission -Patient does have a history of coronary artery disease -Check serial troponins -Plavix and ASA will be on board -Schedule pharmacological nuclear stress test #History of GERD with Boyd's esophagus, chronic, present on admission -Continue with his proton pump inhibitor # History of chewing tobacco, chronic, present on admission -Did not emphasize the importance of quitting due to risk for cancer etc. #EtOH dependence, chronic, present on admission -Emphasize the importance of alcohol cessation #DVT prophylaxis -Start prophylactic subcutaneous Lovenox and SCDs #CODE STATUS -Full code Pain Evaluation: Adequate Pain Control GI Prophylaxis: Proton Pump Inhibitor VTE Prophylaxis: Sub-Q Enoxaparin, SCDs Resuscitation Status: CPR: Attempt Resuscitation Time spent 60 minutes Brittnee Coker MD Feb 23, 2017 17:05
--- NOTE | 2017-02-23 18:12 | NUR ---
Admit to room 250-1 Pt arrived from ER on stretcher to room 250-1. Oriented to room and call light Indep in room. No c/o pain. Stress test in am - approx 0815 no caffiene NPO at midnight no nitro paste/patch in place. Pt notifying family of pt arrival.
[2017-02-23] MEDS: 0.9% Sodium Chloride 1,000 ML IV SCH (21:01)
[2017-02-23] MEDS: Pantoprazole 20 mg ER24 Tablet PO SCH (21:01)
[2017-02-23 21:50] LABS: APPEARANCE,URINE CLEAR (CLEAR,HAZY); COLOR,URINE YELLOW (YELLOW); OCCULT BLOOD,URINE NEGATIVE (NEGATIVE); PH,URINE 5.5 (5.0-8.0); UROBILINOGEN,URINE NORMAL (NORMAL)
[2017-02-23] MEDS: Sodium Chloride LOK Flush 10 mL Syringe IVFLUSH SCH (22:01)
[2017-02-24] VITALS (9 sets, daily range): BP systolic 114–181; BP diastolic 69–115; PULSE 54–67; RESP 18–20; O2SAT 94–99
--- NOTE | 2017-02-24 01:15 | NUR ---
BP Around 0045, pt BPs was 174/82. Paged Dr. Lowe, "BP 174/82, pt asymptomatic. Had to hold atenolol r/t morning NM stress test." Awaiting reply.
[2017-02-24] MEDS: 0.9% Sodium Chloride 1,000 ML IV SCH (05:20)
--- NOTE | 2017-02-24 05:56 | NUR ---
ORTHOSTATIC BP Lyin/85 BP and 61 HR. Sittin/97 BP 63 HR. Standin/115 BP 59 HR. Pt asymptomatic throughout.
[2017-02-24] MEDS: Sodium Chloride LOK Flush 10 mL Syringe IVFLUSH SCH (06:04)
--- NOTE | 2017-02-24 06:28 | NUR ---
NM STRESS TEST Last evening, made known to pt that pt will be NPO at midnight, no caffeine. HS atenolol held, no nitro applied. Verified this morning with pt that pt had nothing to eat or drink. Pt asking about breakfast. Told pt to order, but cannot eat until after stress test. Pt agreed to this, will keep tray at bedside until after stress test.
--- NOTE | 2017-02-24 10:55 | NUR ---
Stress test 0900 pt taken down in w/ch for procedure.
[2017-02-24] MEDS: Pantoprazole 20 mg ER24 Tablet PO SCH (11:51)
--- NOTE | 2017-02-24 15:51 | NUR ---
Social Work-initial assessment/ readiness for discharge: Data:See initial assessment. Pt is a 62 y/o male who was admitted on 02/23/17 for chest pain per H&P. Pt's insurance is [employer] and PCP is Jovana Mejia MD. EMR reviewed. Pt's readmission score is 3-high risk. SW met with pt at bedside, SW role explained. Pt is alert and oriented x3. Pt resides at home with his mother where he remains independent with ADLs. Pt drives and does not use any DME. Pt has no HH or SNF history. Pt has no senior living care insurance or VA benefits. Pt has not completed DPOA/advanced directive, SW has provided pt with paperwork. Pt confirms he has his car here and will provide transport home at discharge. No concerns noted around pt's capacity for self care from RN or MD. SW provided pt with discharge planning checklist and encouraged pt to call with any questions, phone number provided on white board in room. No anticipated discharge needs. SW will continue to follow if needs arise. Assessment:Pt who is independent at baseline. Plan:Pt to discharge home when medically stable via POV. No anticipated discharge needs. SW will continue to follow if needs arise. HAYLIE Pratt Addendum: 02/24/17 at 1555 by LUZ WHITTEN Amended: Links added.
--- NOTE | 2017-02-24 15:52 | PCM.DIMED ---
Discharge Instructions Date of Service Feb 24, 2017 Dates of Hospitalization Feb 23, 2017 at 16:32 Discharge Diagnosis Discharge Diagnosis Chest pain Diet Discharge Diet: Heart Healthy Activity Discharge Activity: No restrictions Call your provider Call your provider for: Chest pain, Vomitting, Excessive diarrhea Patient Instructions Follow-up with PCP in: 1 week (Diabtes management as A1c was 6.4) Luis Simms MD Feb 24, 2017 15:52
--- NOTE | 2017-02-24 15:54 | PCM.DC.MED ---
Discharge Summary Date of Service Feb 24, 2017 Dates of Hospitalization Date of Hospital Admission Feb 23, 2017 at 16:32 Date of Discharge: Feb 24, 2017 Providers: Admitting Physician: Brittnee Coker MD Primary Care Physician: Jovana Mejia MD Attending Physician: Luis Simms MD Diagnosis at Time of Discharge Diagnosis at Time of Discharge Chest pain Procedures XRay, CTs & MRIs PROCEDURE: X-RAY CHEST ONE VIEW, PORTABLE ([id number]) INDICATIONS: Chest pain. TECHNIQUE: One view of the chest was acquired. COMPARISON: [facility], , CHEST 1VW (PORTABLE), 01/16/2013, 17:39. FINDINGS: Surgical changes and devices: None. Lungs and pleura: No pleural effusions or pneumothorax. Lungs are clear. Mediastinum: Mediastinal contours appear normal. Heart size is normal. Bones and chest wall: No suspicious bony lesions. Overlying soft tissues appear unremarkable. IMPRESSION: No acute cardiopulmonary disease. Dictated by: Jeancarlos Hubbard M.D. on 02/23/2017 at 15:09 Approved by: Jeancarlos Hubbard M.D. on 02/23/2017 at 15:10 ECG 12 Lead sinus at rate of 58 with AGE=89,minimal ST upsloping in V1,V2 Other Diagnostics 12/01/2016 PROCEDURE: Esophagogastroduodenoscopy. INDICATION: Patient with a history of Boyd esophagus, who is not on any medications to treat Boyd's. The patient's ASA classification is II. Mallampati score is II. MEDICATIONS: Versed 5 mg, fentanyl 100 mcg. INSTRUMENT USED: [id number]. PROCEDURE DETAILS: After informed consent was obtained, the patient was brought into the GI suite, where he was placed on oxygen via nasal cannula and monitored with continuous pulse oximeter, telemetry, and blood pressure monitoring. A time-out was performed. Then, he was placed in the left lateral decubitus position. A bite block was placed. Medications were then administered for sedation. The standard EGD scope was inserted through the bite block and advanced under direct visualization to the second portion of the duodenum without difficulty. FINDINGS: 1. Normal-appearing duodenal bulb, first and second portion. 2. Normal-appearing pylorus, antrum, and gastric body. 3. Retroflexed views in the gastric body revealed a normal-appearing cardia and fundus. 4. Multiple random biopsies were obtained in the antrum and body of stomach secondary to the patient's complaint of nausea. 5. The top of the gastric folds were approximately 39 cm. From 39 cm extending up to 32 cm, the mucosa was bright pink, suggestive of Boyd's, in a circumferential fashion. Multiple biopsies were obtained starting at 38 cm, and then 36 cm, and then 34 cm, and then 32 cm. From 32 cm, extending up to 30 cm, there were two linear areas of ulceration, suggestive of ulcerative esophagitis. IMPRESSION: 1. C6, M0 suspected Boyd's. 2. Renwick Class A ulcerative esophagitis. RECOMMENDATIONS: 1. Await biopsy results. 2. Follow up in GI clinic. 3. Reflux precautions. COMPLICATIONS: None. ESTIMATED BLOOD LOSS: Less than 5 mL. Brief History 62-year-old male with a history of CABG 3 done in 2004 at [facility] and a stent done in October 2012. Patient had a bare metal stent placed to the saphenous venous graft to the diagonal. He notes he had been doing fine up until he noted some burning left-sided anterior. He notes would last from 5-10 minutes. Did not seem to be related to exertion. He notes that he had similar symptoms when he had his KS. He had no nausea vomiting diaphoresis or lightheadedness with it. He has had no change in bowel movements. He notes that it does not seem to get worse with movement. He did have a left sided supraspinatus tear and of October. First troponin is negative. Hospital Course #Chest pain, acute, present on admission -Patient does have a history of coronary artery disease -Check serial troponins -Plavix and ASA will be on board -Stress test normal #Newly diagnosed diabetes -A1c 6.4 - can be controlled with diet and exercise, patient to follow up outpatient for management #History of GERD with Boyd's esophagus, chronic, present on admission -Continue with his proton pump inhibitor # History of chewing tobacco, chronic, present on admission -Did not emphasize the importance of quitting due to risk for cancer etc. #EtOH dependence, chronic, present on admission -Emphasize the importance of alcohol cessation #CODE STATUS -Full code Exam Vital Signs (Last) Date Time Temp Pulse Resp B/P Pulse Ox O2 Delivery O2 Flow Rate FiO2 02/24/17 11:40 36.4 67 18 136/77 97 Room Air Test 9/18/17 11:45 02/23/17 21:25 02/23/17 23:31 02/24/17 06:05 White Blood Count 7.5th/mm3 (3.8-10.1) Red Blood Count 5.04mil/mm3 (4.40-5.80) Hemoglobin 15.0g/dL (13.8-17.2) Hematocrit 43.9% (41.0-50.0) Mean Corpuscular Volume 87.1fL (81-100) Mean Corpuscular Hemoglobin 29.8pg (27.0-35.0) Mean Corpuscular Hemoglobin Concent 34.2% (32.0-37.0) Red Cell Distribution Width 13.0% (12.3-15.4) Platelet Count 223bil/L (150-400) Neutrophils (%) (Auto) 66.4% (40-74) Lymphocytes (%) (Auto) 24.7% (14-46) Monocytes (%) (Auto) 7.3% (4-12) Eosinophils (%) (Auto) 0.7% (0-5) Basophils (%) (Auto) 0.4% (0-3) Prothrombin Time 10.0sec (8.1-12.5) Prothromb Time International Ratio 0.94ratio Sodium Level 138mEq/L (134-144) Potassium Level 4.1mEq/L (3.5-5.2) Chloride Level 99mEq/L (97-108) Carbon Dioxide Level 21mmol/L (18-29) Blood Urea Nitrogen 18mg/dL (8-27) Creatinine 0.82mg/dL (0.76-1.27) Estimat Glomerular Filtration Rate 101mL/min (>59) Glucose Level 155mg/dL (60-99) Hemoglobin A1c 6.4% (4.8-5.6) Calcium Level 9.2mg/dL (8.5-10.1) Magnesium Level 2.0mg/dL (1.6-2.6) Total Bilirubin 0.5mg/dL (0.0-1.2) Aspartate Amino Transf (AST/SGOT) 21U/L (0-50) Alanine Aminotransferase (ALT/SGPT) 30U/L (0-44) Alkaline Phosphatase 107U/L (25-160) Pro-B-Type Natriuretic Peptide 35.93pg/mL (0-210) Total Protein 7.2g/dL (6.4-8.4) Albumin 4.4g/dL (3.4-5.0) Hold Barlow Top Tube Received (Received) Urine Color Yellow (YELLOW) Urine Appearance Clear (CLEAR,HAZY) Urine pH 5.5 (5.0-8.0) Urine Specific [place] 1.030 (1.003-1.035) Urine Protein Negativemg/dL (NEG,TRACE) Urine Glucose (UA) Negativemg/dL (NEGATIVE) Urine Ketones Negativemg/dL (NEGATIVE) Urine Occult Blood Negative (NEGATIVE) Urine Nitrite Negative (NEGATIVE) Urine Bilirubin Negative (NEGATIVE) Urine Urobilinogen Normalmg/dL (NORMAL) Urine Leukocyte Esterase Negative (NEGATIVE) Urine RBC 0-2/hpf (0-2) Urine WBC 0-5/hpf (0-5) Urine Epithelial Cells Few/hpf (NONE-MOD) Urine Crystals None seen (NONE SEEN) Urine Bacteria Few/hpf (NONE-FEW) Urine Hyaline Casts None/lpf (NONE) Urine Granular Casts None seen (NONE SEEN) Urine Waxy Casts None seen (NONE SEEN) Urine Red Blood Cell Casts None seen (NONE SEEN) Urine White Blood Cell Casts None seen (NONE SEEN) Urine Mucus None seen (None Seen) Urine Trichomonas None seen (NONE SEEN) Urine Yeast None (NONE SEEN) Urinalysis Comment None Urine Culture Reflexed Not indicated Troponin T 0.010ug/L (0.0-0.011) Triglycerides Level 243mg/dL (0-149) Cholesterol Level 222mg/dL (100-199) LDL Cholesterol, Calculated 117.400mg/dL (0-99) VLDL Cholesterol 48.600mg/dL HDL Cholesterol 56mg/dL (>39) Cholesterol/HDL Ratio 3.96 (0.0-4.4) Discharge Medications Discharge Medications Atenolol (Atenolol) 25 Mg Tablet 25 MG PO QPM (Reported) Atorvastatin (Lipitor) 80 Mg Tablet 80 MG PO HS (Reported) Calcium Carbonate (Calcium Carbonate) 600 Mg Tablet 600 MG PO BIDWM (Reported) Cholecalciferol (Vitamin D3) (Vitamin D3) 50,000 Unit Capsule 50,000 UNIT PO TWICE MONTHLY (Reported) TAKES ON THE 1ST AND 15TH OF THE MONTH Clopidogrel (Clopidogrel) 75 Mg Tablet 75 MG PO QPM (Reported) Hydrocortisone Sod Succ/Pf (Solu-Cortef 100 mg Vial) 100 Mg/2 Ml Vial 100 MG IJ ONCE (Reported) To joint for shoulder pain Omeprazole (Omeprazole) 20 Mg Tablet.dr 20 MG PO BIDWM (Reported) Followup Plan Discharge Diet: Heart Healthy Discharge Activity: No restrictions Follow-up with PCP in: 1 week Time spent 35 mins Luis Simms MD Feb 24, 2017 15:54
--- NOTE | 2017-02-24 16:42 | DRSVH ---
PROCEDURE: ONE DAY TREADMILL STRESS TEST. Rest and exercise myocardial perfusion SPECT with gated i maging and ejection fraction RADIOPHARMACEUTICAL: 8.5 mCi of Tc-99m tetrofosmin IV at rest and 24.2 mCi of Tc-99m tetrofosmin IV at peak exercise. [id number] was performed. INDICATIONS: CHEST PAIN TECHNIQUE: Radiopharmaceutical was injected at peak stress test and also at rest. SPECT images were obtained. SPECT myocardial perfusion images were displayed in short axis, horizontal long axis, and vertical long axis views. Gated images were reviewed using [employer] software. COMPARISON: None. CARDIAC STRESS: A standard Kobe treadmill exercise tolerance test was performed by the patient unde r the supervision of the attending staff. The patient exercised for 9 minutes and 1 second; function al aerobic impairment (REHANA) was -20%. Hemodynamic Data: The patient had a hypertensive blood pressure response. Baseline blood pressure w as 156/70. Peak blood pressure was 230/96. The patient achieved 99% of maximum predicted heart rate at peak exercise. Symptoms: The patient denied chest pain during exercise. EKG: EKG revealed sinus rhythm. Stress EKG did not reveal any convincing ischemic changes. There w ere no significant arrhythmias. FINDINGS: Raw Data: There appears to be adequate myocardial uptake. Left Ventricular Function: Stress LV ejection fraction is 75% and resting LV ejection fraction is 62 %. Resting LV end diastolic volume is 85 mL. I do not see any significant wall motion abnormalities . Myocardial Perfusion: The stress supine and resting supine images revealed small-size, mildly decrea sed perfusion of the basal inferior wall, which resolved during prone images, suggestive of tissue at tenuation artifact. I do not see any obvious ischemia infarction pattern. IMPRESSION: I will call this study a normal myocardial perfusion study without any evidence of ische mindy infarction. The patient walked on Kobe protocol for 9 minutes and 1 second. There was a hypert ensive blood pressure response. Functional aerobic impairment was -20%. Overall this is a low-risk myocardial perfusion study. The patient had an exercise perfusion study in January 2013. At that geetha e he also had normal myocardial perfusion and walked about 9 minutes. Dictated by: Ashley Galdamez M.D. on 02/24/2017 at 15:34 Transcribed by: KRYSTAL on 02/24/2017 at 19:42 Approved by: Ashley Galdamez M.D. on 02/24/2017 at 17:05
--- NOTE | 2017-02-24 16:48 | DRSVH ---
[facility] [address] [place] [address] Echocardiogram Report Name: MARYANN DALTON Study Date: 02/24/2017 Height: 68 in Hospital Exam Location: [facility] Weight: 194 lb Gender: Male BSA: 2.0 m2 : 1955 Age: 62 yrs BP: 174/115 mmHg Reason For Study: Chest pain Ordering Physician: Performed By: Risa Mccurdy Referring Physician: Jovana Mejia Interpretation Summary 1) Normal left ventricular thickness, size, wall motion, and systolic function (EF 60-65%). 2) The right ventricle grossly appears normal in size with probable normal systolic function. 3) No significant valvular abnormalities present. 4) Hypertension present during the study (BP 174/115)/ 5) No prior Echo available for comparison/ Procedure: A two-dimensional transthoracic echocardiogram with color flow and Doppler was performed. The study quality was technically adequate. Comparison is made with the echocardiogram of 11/02/2012. The patient was in normal sinus rhythm during the exam. Left Ventricle: The left ventricle is normal in size. Left ventricular wall thickness is normal. The ejection fraction is estimated to be 60-65%. Left ventricular systolic function is normal without focal wall motion abnormalities. Assessment of diastolic parameters indicates normal left ventricular diastolic function and normal filling pressures. Right Ventricle: The right ventricle grossly appears normal in size with probable normal systolic function. Atria: Both atria are normal in size. The interatrial septum is intact with no evidence for an atrial septal defect. Mitral Valve: The mitral valve is normal. There is trace mitral regurgitation. Aortic Valve: The aortic valve is normal in structure and function. There is no aortic valve stenosis. No aortic regurgitation is present. Tricuspid Valve: The tricuspid valve is normal in structure and function. There is a trace or physiologic amount of tricuspid regurgitation. Pulmonic Valve: The pulmonic valve is normal in structure and function. There is a trace or physiologic amount of pulmonic regurgitation. Great Vessels: The aortic root is normal size. The ascending aorta is normal in size. The aortic arch is normal in size. The pulmonary artery is normal size. The IVC is of normal diameter and collapses greater than 50% with a sniff. This suggests a low right atrial pressure of 3 mm Hg. Pericardium/ Pleura There is no pericardial effusion. There is no pleural effusion. MMode/2D Measurements & Calculations LVIDd: 4.7 cm LVIDs: 3.1 cm LA A2 area: 22.2 cm FS: 32.8 % LA A4 area: 13.6 cm EPSS: 0.41 cm LA length (vol): 5.7 cm IVSd: 1.0 cm LA vol: 44.9 ml LVPWd: 1.0 cm LA vol index: 22.3 ml/m IVC diam: 1.8 cm RA long axis: 4.8 cm LVOT diam: 1.9 cm RA area: 14.8 cm AoV Openin.8 cm RA vol: 38.9 ml Ao root diam: 3.3 cm RA : 19.3 ml/m2 asc Aorta Diam: 3.3 cm Ao Arch Diam (Prox Trans): 2.8 cm LV medina. diameter/BSA (cm/m^2): 2.3 LV sys. diameter/BSA (cm/m^2): 1.6 TAPSE: 1.6 cm Doppler Measurements & Calculations Ao V2 max: 111.9 cm/sec MV E max jeovanny: 75.2 cm/sec Ao max P.0 mmHg MV A max jeovanny: 81.0 cm/sec Ao mean P.8 mmHg MV P1/2t: 61.5 msec LVOT Max Jeovanny: 105.6 cm/sec SONY(I,D): 2.8 cm sev ratio: 0.96 MV E/A: 0.93 TR max jeovanny: 221.9 cm/sec Med Peak E' Jeovanny: 8.4 cm/sec TR max P.7 mmHg E/E' med: 8.9 PA V2 max: 65.2 cm/sec Lat Peak E' Jeovanny: 11.2 cm/sec PA mean P.89 mmHg E/E' lat: 6.7 E/e' average: 7.8 MV dec time: 0.21 sec MV P1/2t max jeovanny: 75.8 cm/sec MVA(P1/2t): 3.6 cm2 Ao V2 mean: 80.8 cm/sec LV V1 max P.5 mmHg Ao V2 VTI: 26.0 cm LV V1 VTI: 25.1 cm SONY(V,D): 2.7 cm2 PA V2 mean: 45.5 cm/sec SONY indexed to BSA (cm^2/m^2): 1.4 Reading Physician:04:47 PM
--- NOTE | 2017-02-24 17:16 | NUR ---
Doc Reviewed DC instructions to patient. Enc to f/up with PCP - DM management Stated understanding Addendum: 02/24/17 at 1736 by PACHECO MARTIN RN Pt ambulated to own private vehicle to home. All belongings taken.
--- NOTE | 2017-02-24 17:25 | NUR ---
Social Work-discharge: Data:EMR reviewed. Pt is on day 1 of hospitalization for chest pain per H&P. Pt is medically stable for discharge. Pt has been up independent in his room. No discharge needs identified. All updated and agreeable to plan. Assessment:pt who is independent at baseline. Plan:Pt to discharge home today via POV. No discharge needs identified. All updated and agreeable to plan. HAYLIE Pratt
== END 2017-02-24 17:15 | disposition home or self-care (01) ==
LOC: SED 13:55 → MOC 16:32
PROVIDERS: ADMIT Specialist; ATTEND Specialist
DX: R07.9 Chest pain, unspecified (principal); E11.9 Type 2 diabetes mellitus without complications; K21.9 Gastro-esophageal reflux disease without esophagitis; I10 Essential (primary) hypertension; I25.10 Atherosclerotic heart disease of native coronary artery without angina pectoris; F10.20 Alcohol dependence, uncomplicated; F17.220 Nicotine dependence, chewing tobacco, uncomplicated; Z79.02 Long term (current) use of antithrombotics/antiplatelets; Z95.1 Presence of aortocoronary bypass graft; Z88.2 Allergy status to sulfonamides; Z88.8 Allergy status to other drugs, medicaments and biological substances
CPT/HCPCS: 36415; 71010; 78452; 80053; 80061; 81000; 83036; 83735; 83880; 84484; 85025; 85610; 93005; 93017; 96372; 99285; A9502; C8929; G0378; J1650; J7030